=== PATIENT | male | born 1965 | race Native Hawaiian/Other Pacific Islander ===

== ENCOUNTER 2016-06-03 13:48 | Outpatient (CLI) | payer OTHER | END 2016-06-03 13:49 | disposition home or self-care (01) | DX: M94.262 Chondromalacia, left knee (principal); M19.90 Unspecified osteoarthritis, unspecified site; M17.11 Unilateral primary osteoarthritis, right knee; M23.8X1 Other internal derangements of right knee; M25.562 Pain in left knee; M25.561 Pain in right knee ==

== ENCOUNTER 2017-04-11 12:45 | Outpatient (CLI) | payer OTHER ==
[~2017-04-11 12:45] MED LIST: GADOBUTROL 10 MMOL/10 ML VIAL ONE
[2017-04-11] MEDS ORDERED: GADOBUTROL 10 MMOL/10 ML VIAL IVP ONE (13:36)
--- NOTE | 2017-04-11 14:56 | MRI Report ---
EXAM: MRI BRAIN WITHOUT AND WITH CONTRAST EXAM DATE: 04/11/2017 01:43 p.m. CLINICAL HISTORY: Headaches. COMPARISON: None. TECHNIQUE: Multiplanar, multisequence T1-weighted and fluid-sensitive MR sequences of the brain were performed. Sequences optimized for routine evaluation. Other: None. IV Contrast: Without and with 10 mL Gadavist. FINDINGS: Brain Volume: Normal for age. Parenchyma: No hemorrhage. No acute or recent ischemic infarct, no restricted diffusion. No enhancing or space-occupying mass. No abnormal enhancement of white matter T2 hyperintensities nikolas cribed below. Contrast opacification of the major dural venous sinuses is present as expected. Innumerable small scattered nodular and patchy foci of abnormal deep white matter T2 hyperintensity a re present in both cerebral hemispheres, mostly frontal and parietal but also temporal lobes. T2 hype rintense foci range in size from 1-8 mm. These T2 hyperintensities are hypointense on T1 but show no evidence for enhancement, hemorrhage or restricted diffusion. No focal posterior fossa plaque-like T2 hyperintensity. Ventricles/Cisterns: No hydrocephalus. No abnormal extra-axial fluid collection or hemorrhage. Orbits: Symmetric and unremarkable. Sinuses: Minimal paranasal sinus mucosal thickening. No air-fluid level or opacification. Bones: No focal pathologic-appearing marrow signal changes in the skull or clivus. Other: The major arterial skull base flow voids are present. IMPRESSION: 1.No acute abnormality or enhancing mass. 2. Numerous nonspecific nodular scattered foci of cerebral deep white matter T2 hyperintensity, with the usual gamut of white matter conditions may be considered, including post ischemic or postinflamma tory gliosis. Migraine angiopathy may be considered. No abnormal enhancement to suggest active white matter disease. [facility] Referring Provider Line: [phone] SITE ID: [id number]
== END 2017-04-11 12:46 | disposition home or self-care (01) ==
LOC: DI 12:45
PROVIDERS: ATTEND Nutritionist
DX: R51 Headache (principal)
CPT/HCPCS: 70553; A9585

== ENCOUNTER 2017-07-26 09:16 | Emergency (ER) | payer OTHER ==
[2017-07-26 09:25] VITALS: BP 138/78
--- NOTE | 2017-07-26 10:05 | ED Physician Documentation ---
History of Present Illness - Stated complaint Stated Complaint: COUGHING/BODYACHES - Chief complaint Chief Complaint: General - History obtained from History obtained from: Patient - History of Present Illness Timing: How many days ago (3-4) Pain level max: 5 Pain level now: 4 Improved by: tylenol Worsened by: nothing - Additonal information Additional information: Cough, congestion, sorethroat, bodyaches for 3-4 days. Took mucinex and tylenol yesterday. sick with same last week, she is better now. No fevers. Review of Systems Constitutional: denies: Fever Respiratory: reports: Cough GI: denies: Vomiting, Diarrhea Skin: denies: Rash Musculoskeletal: denies: Neck pain, Back pain Neurologic: reports: Headache (intermittent) PD PAST MEDICAL HISTORY - Past Medical History Past Medical History: No - Past Surgical History Past Surgical History: No - Present Medications Home Medications: Ambulatory Orders Medication Instructions Recorded Confirmed No Known Home Medications [No 07/26/17 07/26/17 Known Home Medications] - Allergies Allergies/Adverse Reactions: Allergies Allergy/AdvReac Type Severity Reaction Status Date / Time No Known Drug Allergies Allergy Verified 07/26/17 09:25 - Social History Does the pt smoke?: No Smoking Status: Never smoker Does the pt drink ETOH?: Yes Does the pt have substance abuse?: No - Immunizations Immunizations are current?: Yes PD ED PE NORMAL - Vitals Vital signs reviewed: Yes - General General: Alert and oriented X 3, No acute distress, Well developed/nourished - HEENT HEENT: PERRL, Ears normal, Moist mucous membranes, Pharynx benign - Neck Neck: Supple, no meningeal sign, No adenopathy - Cardiac Cardiac: RRR, Strong equal pulses - Respiratory Respiratory: No respiratory distress, Clear bilaterally - Abdomen Abdomen: Soft, Non tender, Non distended - Derm Derm: Warm and dry, No rash - Extremities Extremities: No edema - Neuro Neuro: Alert and oriented X 3 - Psych Psych: Normal mood, Normal affect Results - Vitals Vitals: Vital Signs - 24 hr 07/26/17 09:16 Temperature 37.6 C H Heart Rate 117 H Respiratory 18 Rate Blood Pressure 138/78 H O2 Saturation 97 Oxygen O2 Source Room air - Labs Labs: Laboratory Tests 07/26/17 09:39 Influenza A (Rapid) Negative Influenza B (Rapid) POSITIVE H Influenza Types A,B Ag + H PD MEDICAL DECISION MAKING - ED course Complexity details: reviewed results, re-evaluated patient, considered differential, d/w patient ED course: Patient is a 51-year-old gentleman who presents to the emergency department with influenza B. He is out of the window for Tamiflu. He is well-appearing, nontoxic. Tolerating p.o. without difficulty. Will continue supportive care and follow-up with his PCP. No evidence of pneumonia, sepsis. Patient counseled regarding signs and symptoms for which I believe and urgent re- evaluation would be necessary. Patient with good understanding of and agreement to plan and is comfortable going home at this time This document was made in part using voice recognition software. While efforts are made to proofread this document, sound alike and grammatical errors may occur. Departure - Departure Disposition: 01 Home, Self Care Clinical Impression: Influenza B Condition: Good Instructions: ED Viral Syndrome Follow-Up: ABRAHAM MAGAÑA [Primary Care Provider] - Within 1 week Comments: Return if you worsen. This will last approximately 1 week. Drink plenty of fluids and rest. Discharge Date/Time: 07/26/17 10:28
== END 2017-07-26 10:28 | disposition home or self-care (01) ==
LOC: ED 09:16
DX: J10.1 Influenza due to other identified influenza virus with other respiratory manifestations (principal)
CPT/HCPCS: 87275; 87276; 99282; 99283

== ENCOUNTER 2018-08-05 09:28 | Outpatient (CLI) | payer OTHER ==
--- NOTE | 2018-08-05 16:58 | MRI Report ---
Reason: PERSISTANT ANTERIOR L KNEE PAIN Procedure Date: 08/05/2018 Accession Number: [id number] / [id number] Procedure: MRI - Knee LT W/O CPT Code: FULL RESULT: EXAM: LEFT KNEE MRI WITHOUT CONTRAST EXAM DATE: 08/05/2018 10:37 AM. CLINICAL HISTORY: Persistent anterior left knee pain. COMPARISON: MRI 06/03/2016. TECHNIQUE: Multiplanar, multisequence T1-weighted and fluid-sensitive sequences of the knee without contrast. Other: None. FINDINGS: Bones: Mild to moderate pulmonary edema and cystic changes at the trochlear groove, slightly progressed. New subtle bone marrow edema at the medial patellar facet. Articular Cartilage: Shallow partial-thickness cartilage loss medial and lateral compartments. Small region of deep partial-thickness loss and irregularity/fissuring medial patellar facet, new. Moderate sized region of deep partial-thickness to full-thickness cartilage loss central trochlea, slightly progressed. Medial Meniscus: Subtle intrasubstance signal posterior horn. No discrete tear. Lateral Meniscus: The lateral meniscus is intact. Cruciate Ligaments: Mild thickening and cystic changes anterior cruciate ligament, likely mucoid degeneration. Posterior cruciate ligament intact. 0.9 cm posterior cruciate ligament ganglion. Collateral Ligaments: The medial collateral and lateral collateral ligamentous structures are intact. Tendons: Mild quadriceps and patellar tendinopathy. Popliteus and semimembranosus tendons unremarkable. Musculature: No edema or fatty atrophy. Other: Small joint effusion, slightly increased. No popliteal cyst. No loose bodies. The medial and lateral retinacula are intact. Mild subcutaneous edema anteriorly, slightly progressed. Mild to moderate reactive edema in hoffa's fat pad, slightly progressed. IMPRESSION: 1. Progression of cartilage loss at the patellofemoral joint, deep partial-thickness to full-thickness at the trochlea. 2. Small joint effusion, slightly increased. 3. Mucoid degeneration anterior cruciate ligament. 4. Mild quadriceps and patellar tendinopathy. 5. Menisci intact. [facility] MUSCULOSKELETAL [facility]IOLOGY SECTION
== END 2018-08-05 09:29 | disposition home or self-care (01) ==
LOC: DI 09:28
PROVIDERS: ATTEND Physician Assistant Surgical
DX: M23.8X2 Other internal derangements of left knee (principal); M67.864 Other specified disorders of tendon, left knee; M25.462 Effusion, left knee

== ENCOUNTER 2022-08-28 09:00 | Emergency (ER) | payer OTHER ==
--- NOTE | 2022-08-28 09:32 | XRAY Report ---
PROCEDURE: Chest 1 View X-Ray INDICATIONS: Chest pain TECHNIQUE: One view of the chest was acquired. COMPARISON: None. FINDINGS: Surgical changes and devices: None. Lungs and pleura: No pleural effusions or pneumothorax. Lungs are clear. Mediastinum: Mediastinal contours appear normal. Heart size is normal. Bones and chest wall: No suspicious bony lesions. Overlying soft tissues appear unremarkable. IMPRESSION: No acute cardiopulmonary process. Reviewed by: Irineo Carty on 08/28/2022 9:31 AM PDT Approved by: Irineo Carty on 08/28/2022 9:31 AM PDT Station ID: [id number]
[2022-08-28 09:46] LABS: BASOPHILS % (AUTO) 0.5 %; EOSINOPHILS # (AUTO) 0.2 10^3/uL (0.0-0.7); EOSINOPHILS % (AUTO) 2.7 %; HCT - HEMATOCRIT 43.8 % (42.0-52.0); HGB - HEMOGLOBIN 14.9 g/dL (14.0-18.0); LYMPHOCYTES # (AUTO) 1.7 10^3/uL (1.5-3.5); LYMPHOCYTES % (AUTO) 31.3 %; MEAN CORPUSCULAR HEMOGLOBIN 30.3 pg (27.0-31.0); MEAN CORPUSCULAR VOLUME 89.2 fL (80.0-94.0); MONOCYTES # (AUTO) 0.4 10^3/uL (0.0-1.0); MONOCYTES % (AUTO) 6.7 %; NEUTROPHILS # (AUTO) 3.2 10^3/uL (1.5-6.6); NEUTROPHILS % (AUTO) 58.4 %; PLT - PLATELET COUNT 185 10^3/uL (130-450); RED BLOOD COUNT 4.91 10^6/uL (4.70-6.10); RED CELL DISTRIBUTION WIDTH 13.1 % (12.0-15.0); WHITE BLOOD COUNT 5.5 x10^3/uL (4.8-10.8)
[2022-08-28 10:04] LABS: ALBUMIN 3.9 g/dL (3.2-5.5); ALBUMIN/GLOBULIN RATIO 1.3 (1.0-2.2); BILIRUBIN,TOTAL 0.7 mg/dL (0.2-1.0); CREATININE 0.9 mg/dL (0.6-1.2); POTASSIUM 3.7 mmol/L (3.5-5.0); TOTAL PROTEIN 6.9 g/dL (6.7-8.2)
--- NOTE | 2022-08-28 11:50 | ED Physician Documentation ---
PD HPI CHEST PAIN - Stated complaint Stated Complaint: CHEST PX - Chief complaint Chief Complaint: Cardiac - History obtained from History obtained from: Patient - Additional information Additional information: 56-year-old gentleman with history of hypertriglyceridemia, otherwise healthy with no history of coronary disease does not smoke. He woke up in a funny position yesterday with his arms under him and since then has had chest tightness with left arm numbness. It is actually better today but he recently lost a family member to cancer and then started thinking about his own mortality. This was after eating some gluten-containing cereal which he is allergic to and started to have palpitations and started to become concerned. Feeling better now. PD PAST MEDICAL HISTORY - Past Surgical History Past Surgical History: No - Present Medications Home Medications: Ambulatory Orders Medication Instructions Recorded Confirmed No Known Home Medications 07/26/17 07/26/17 - Allergies Allergies/Adverse Reactions: Allergies Allergy/AdvReac Type Severity Reaction Status Date / Time gluten Allergy Unknown Verified 08/28/22 09:11 - Social History Does the pt smoke?: No Smoking Status: Never smoker Does the pt drink ETOH?: Yes Does the pt have substance abuse?: No - Immunizations Immunizations are current?: Yes PD ED PE NORMAL - Vitals Vital signs reviewed: Yes - General General: Alert and oriented X 3, No acute distress - Cardiac Cardiac: RRR, No murmur, Strong equal pulses (Equal radial pulses) - Respiratory Respiratory: No respiratory distress, Clear bilaterally - Abdomen Abdomen: Non tender - Extremities Extremities: No edema, No calf tenderness / cord - Neuro Neuro: Alert and oriented X 3, Normal speech Results - Vitals Vitals: Vital Signs - 24 hr 08/28/22 09:06 Temperature 36.0 C L Heart Rate 109 H Respiratory 20 Rate Blood Pressure 143/91 H O2 Saturation 96 Oxygen O2 Source Room air - EKG (time done) 0908 EKG releavant findings:: EKG personally interpreted by author of this note. Relevant findings are: Rhythm: NSR Viola: Normal Intervals: Normal OH QRS: Normal Ischemia: Normal ST segments - Labs Labs: Laboratory Tests 08/28/22 08/28/22 08/28/22 09:40 09:40 09:40 WBC 5.5 RBC 4.91 Hgb 14.9 Hct 43.8 MCV 89.2 MCH 30.3 MCHC 34.0 RDW 13.1 Plt Count 185 MPV 10.0 Neut # (Auto) 3.2 Lymph # (Auto) 1.7 Borden # (Auto) 0.4 Eos # (Auto) 0.2 Baso # (Auto) 0.0 Absolute Nucleated RBC 0.00 Nucleated RBC % 0.0 Sodium 138 Potassium 3.7 Chloride 108 Carbon Dioxide 23 Anion Gap 7.0 BUN 16 Creatinine 0.9 Estimated GFR (MDRD) 88 L Glucose 136 H Calcium 9.0 Total Bilirubin 0.7 AST 34 ALT 48 Alkaline Phosphatase 47 Troponin I High Sens 2.5 Total Protein 6.9 Albumin 3.9 Globulin 3.0 Albumin/Globulin Ratio 1.3 Lipase 44 - Rads (name of study) 1v cxr- normal Relevant Findings:: Final report received, EMP independent interpretation of test PD Medical Decision Making - ED course ED course: Heart score 1. Nothing in the history or physical to suggest PE. Nothing in the history or physical to suggest dissection. Departure - Departure Disposition: 01 Home, Self Care Clinical Impression: Atypical chest pain Condition: Good Record reviewed to determine appropriate education?: Yes Instructions: ED Chest Pain Atypical Unkn Cause Comments: Your EKG, troponin, chest x-ray, and other labs are unremarkable. This strongly suggests against active heart disease. You should still follow-up with your primary care physician for reevaluation and return for new or worsening symptoms. Call your doctor today for the next available appointment.
[2022-08-28 12:15] VITALS: BP 133/84
== END 2022-08-28 12:17 | disposition home or self-care (01) ==
LOC: ED 09:00
DX: R07.89 Other chest pain (principal); E78.1 Pure hyperglyceridemia
CPT/HCPCS: 36415; 80053; 83690; 84484; 85025; 93005; 99283; 99284

== ENCOUNTER 2024-01-02 09:43 | Outpatient (CLI) | payer OTHER ==
--- NOTE | 2024-01-02 23:57 | MRI Report ---
PROCEDURE: Knee RT WO INDICATIONS: R KNEE PAIN TECHNIQUE: Noncontrast sagittal PD fast spin echo and T2 fast spin echo with fat saturation, sagittal 3-D gradie nt sequence with fat saturation; coronal T1 spin echo and PD fast spin echo with fat saturation, and axial PD fast spin echo with fat saturation through the knee. COMPARISON: None. FINDINGS: Image quality: Excellent. Menisci: Oblique tear involving posterior horn of medial meniscus extending to inferior articulating surface. The lateral meniscus is intact. Moderate grade partial-thickness tear involving posterior me dial meniscal root is seen. Cruciate ligaments: The anterior and posterior cruciate ligaments appear intact. Medial structures: The medial collateral ligament appears thickened with surrounding soft tissue bon ma. Visualized portions of the pes anserinus tendons appear normal. No abnormal bursal fluid. Lateral structures: The lateral collateral ligament, long and short heads of the biceps femoris tend on appear intact. The popliteus tendon appears thickened. Iliotibial band appears normal. Anterior structures: Distal quadriceps tendinosis and proximal patella tendinosis at their patellar i nsertions are seen. Patellar alignment is normal. No femoral trochlear dysplasia or ventral trochlea r prominence. No edema in the infrapatellar fat pad. Bones and cartilage: No bone marrow contusions or fractures. [id number] tricompartmental osteo arthritis and chondromalacia is seen most notably medial femoral tibial compartment. Joint space: There is small to moderate knee joint fluid. No Day's cyst. Normal appearing synovi al plicae are incidentally noted. IMPRESSION: 1. Oblique tear involving posterior horn of medial meniscus extending to inferior articulating surfac e. The lateral meniscus is intact. Moderate grade partial-thickness tear involving posterior medial m eniscal root. 2. The cruciate ligaments are intact. 3. Mild MCL sprain/partial thickness tear. Mild popliteus tendinosis. 4. Distal quadriceps tendinosis and mild proximal patellar tendinosis. 5. 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 No fracture or dislocation. Small to moderate joint effusion, no loose bodies. Reviewed by: Lenard Orosco MD on 01/02/2024 11:55 PM PDT Approved by: Lenard Orosco MD on 01/02/2024 11:55 PM PDT Station ID: [id number]
== END 2024-01-02 09:44 | disposition home or self-care (01) ==
LOC: DI 09:43
PROVIDERS: ATTEND Family Medicine
DX: S83.241A Other tear of medial meniscus, current injury, right knee, initial encounter (principal); S83.411A Sprain of medial collateral ligament of right knee, initial encounter; M67.863 Other specified disorders of tendon, right knee; M17.11 Unilateral primary osteoarthritis, right knee; M94.261 Chondromalacia, right knee; M25.461 Effusion, right knee